=== PATIENT | female | born 1955 | race Caucasian/White ===

== ENCOUNTER → 2023-11-19 08:45 | Outpatient (REF) | payer OTHER, SELFPAY | LOC: HWRCS 08:45 | PROVIDERS: ATTENDING PHYSICIAN Nurse Practitioner Adult Health | DX: R06.02 Shortness of breath (principal); R00.2 Palpitations | CPT/HCPCS: 93306 ==

== ENCOUNTER → 2023-11-22 14:29 | Outpatient (REF) | payer OTHER, SELFPAY | LOC: HWRAD 14:29 | PROVIDERS: ATTENDING PHYSICIAN Nurse Practitioner Adult Health | DX: Z12.31 Encounter for screening mammogram for malignant neoplasm of breast (principal); Z78.0 Asymptomatic menopausal state | CPT/HCPCS: 77063; 77067; 77080 ==

== ENCOUNTER → 2023-12-13 13:22 | Outpatient (REF) | payer OTHER, SELFPAY | LOC: HWRAD 13:22 | PROVIDERS: ATTENDING PHYSICIAN Nurse Practitioner Adult Health | DX: M79.671 Pain in right foot (principal); R05.3 Chronic cough | CPT/HCPCS: 71046; 73630 ==

== ENCOUNTER → 2024-02-06 11:36 | Outpatient (REF) | payer OTHER, SELFPAY | LOC: RCS 11:36 | PROVIDERS: ATTENDING PHYSICIAN Nurse Practitioner Adult Health | DX: R00.2 Palpitations (principal) | CPT/HCPCS: 93225; 93226 ==

== ENCOUNTER → 2024-02-18 09:56 | Outpatient (REF) | payer OTHER, SELFPAY | LOC: HWRAD 09:56 | PROVIDERS: ATTENDING PHYSICIAN Surgery; FAMILY PHYSICIAN Nurse Practitioner Adult Health | DX: D17.9 Benign lipomatous neoplasm, unspecified (principal) | CPT/HCPCS: 73030 ==

== ENCOUNTER → 2024-02-19 09:18 | Outpatient (REF) | payer OTHER, SELFPAY | LOC: HWRAD 09:18 | PROVIDERS: ATTENDING PHYSICIAN Surgery; FAMILY PHYSICIAN Nurse Practitioner Adult Health | DX: D17.9 Benign lipomatous neoplasm, unspecified (principal) | CPT/HCPCS: 73201; 74177; Q9967 ==

== ENCOUNTER 2024-03-03 06:37 | Day surgery (SDC) | payer OTHER, SELFPAY ==
[2024-03-03 10:55] VITALS: BMI 33.3
[2024-03-03 11:00] VITALS: BP 156/87
[2024-03-03] MEDS: NORMOSOL-R 1000 IV (11:17)
[2024-03-03] MEDS: TYLENOL 1000 MG PO (11:18)
[2024-03-03 11:19] VITALS: BMI 33.3
--- NOTE | 2024-03-03 13:16 | W.IMMPOSTOP ---
Surgical Immed Post Op Note
-
Primary Surgeon: Catherine
Pre-op Diagnosis: Lipoma of right shoulder, lipoma of right flank
Post-op Diagnosis: Same
Procedure Performed: Excision of lipomas of shoulder and flank
Anesthesia Type: MAC local
Specimen / Cultures: Lipoma of right flank, lipoma of right shoulder
Estimated Blood Loss: 3cc
Complications: None immediate
Operative Findings: 9cm x 6cm x 4cm shoulder; 8cm x 6cm x 4cm flank; shoulder closed with nylon suture, flank with monocryl (both with a deep layer of vicryls)
[2024-03-03 13:17] VITALS: BP 150/73
--- NOTE | 2024-03-03 13:21 | OR.RPT ---
Operative Report
Operative Report
Primary Surgeon: Catherine
Pre-op Diagnosis: Lipoma of right shoulder, lipoma of right flank
Post-op Diagnosis: Same
Procedure Performed: Excision of lipomas of shoulder and flank
Anesthesia Type: MAC local
Specimen / Cultures: Lipoma of right flank, lipoma of right shoulder
Estimated Blood Loss: 3cc
Complications: None immediate
Operative Findings: 9cm x 6cm x 4cm shoulder; 8cm x 6cm x 4cm flank; shoulder closed with nylon suture, flank with monocryl (both with a deep layer of vicryls)
Date of Surgery: 03/03/24
Indications: This 68F developed a symptomatic lipomas of her right shoulder and right flank. Excision under MAC local was elected.
PROCEDURE: After informed consent was obtained, the patient was marked while awake in the preop area and then brought to the operative suite and placed supine on the operating table. The patient was sedated, prepped and draped in the usual sterile
manner and an adequate local anesthetic was administered using lidocaine 1% with epinephrine.
An incision was made over the shoulder mass with a #15 blade. The incision was carried down to tthe lipoma capsule with electrocautery. Cautery and blunt dissection was used to liberate the mass from surrounding structures. The mass was delivered
through the wound and passed off the table as specimen. The wound was copiously irrigated with sterile saline and hemostasis was assured. The wound was closed in layers with deep dermal interrupted 3-0 vicryl and interrupted 3-0 nylon sutures.
Attention was turned to the right flank and the above process was repeated. This wound was closed with vicryl deep dermal sutures and a running subcuticular 4-0 monocryl suture. Topical skin glue was applied. Dry sterile gauze was applied to the
right shoulder wound.
All surgical counts were reported as correct. The patient tolerated the procedure well and was taken to the PACU in stable condition.
[2024-03-03 13:31] VITALS: BP 141/70
[2024-03-03 13:45] VITALS: BP 134/68
[2024-03-03 14:00] VITALS: BP 143/71
== END 2024-03-03 14:29 | disposition home or self-care (01) ==
LOC: SDS 06:37
PROVIDERS: ATTENDING PHYSICIAN Surgery
DX: D17.1 Benign lipomatous neoplasm of skin and subcutaneous tissue of trunk (principal); D17.21 Benign lipomatous neoplasm of skin and subcutaneous tissue of right arm
CPT/HCPCS: 11406; 88304

== ENCOUNTER → 2024-04-09 08:01 | Outpatient (REF) | payer OTHER, SELFPAY | LOC: RCS 08:01 | PROVIDERS: ATTENDING PHYSICIAN Internal Medicine Cardiovascular Disease; FAMILY PHYSICIAN Nurse Practitioner Adult Health | DX: R06.09 Other forms of dyspnea (principal) | CPT/HCPCS: 93017; 93350; Q9957 ==

== ENCOUNTER → 2024-04-23 08:01 | Outpatient (REF) | payer OTHER, SELFPAY | LOC: RAD 08:01 | PROVIDERS: ATTENDING PHYSICIAN Podiatrist Foot & Ankle Surgery; FAMILY PHYSICIAN Nurse Practitioner Adult Health | DX: M77.41 Metatarsalgia, right foot (principal); S93.524A Sprain of metatarsophalangeal joint of right lesser toe(s), initial encounter; G57.61 Lesion of plantar nerve, right lower limb | CPT/HCPCS: 76882 ==

== ENCOUNTER 2024-04-25 06:10 | Day surgery (SDC) | payer OTHER, SELFPAY ==
[2024-04-22 09:12] VITALS: BMI 33.8
[2024-04-22 10:53] LABS: % Basophils 0.4 % (0-2); % Eosinophils 1.4 % (0-6); % Immature Granulocytes 0.2 % (0-0.5); % Lymphocytes 33.5 % (20.5-51.1); % Monocytes 7.8 % (1.7-9.3); % Neutrophils 56.7 % (42.2-75.2); Absolute Eosinophils 0.1 10^3/uL (0-0.7); Absolute Lymphocytes 1.6 10^3/uL (1.2-3.4); Absolute Monocytes 0.4 10^3/uL (0.1-0.6); Absolute Neutrophils 2.8 10^3/uL (1.4-6.5); Hematocrit 37.6 % (37.0-47.0); Hemoglobin 12.5 g/dL (12.0-16.0); Mean Corp Hgb Conc. 33.2 g/dL (33.0-37.0); Mean Corpuscular Hgb 29.1 pg (27.0-31.0); Mean Corpuscular Volume 87.6 fL (81.0-99.0); Mean Platelet Volume 11.5 fL (7.4-10.4); Nucleated Red Blood Cells % 0 %; Platelet Count 272 10^3/uL (130-400); Red Blood Cell Count 4.29 10^6/uL (4.20-5.40); Red Cell Dist. Width 13.2 % (11.5-14.5); White Blood Cell Count 4.9 10^3/uL (4.8-10.8)
[2024-04-22 11:07] LABS: ALT (SGPT) 24 U/L (0-35); AST (SGOT) 25 U/L (14-36); Albumin 4.2 g/dl (3.5-5.0); Alkaline Phosphatase 85 U/L (38-126); Blood Urea Nitrogen 18 mg/dl (7-17); Calcium 9.2 mg/dl (8.4-10.2); Carbon Dioxide 30 mmol/L (22-30); Chloride 103 mmol/L (98-107); Estimated Creatinine Clearance 92 ml/min; Glucose 92 mg/dl (70-99); Potassium 4.5 mmol/L (3.5-5.1); Sodium 142 mmol/L (135-145); Total Bilirubin 0.3 mg/dl (0.2-1.3); Total Protein 6.6 g/dl (6.3-8.2); eGFR > 60.00
[2024-04-25] VITALS (22 sets, daily range): BP systolic 130–185; BP diastolic 61–130
[2024-04-25] MEDS: NSS 1000 IV (11:02)
[2024-04-25] MEDS: TYLENOL 1000 MG PO (13:45)
--- NOTE | 2024-04-25 16:00 | ITS.CL.PN ---
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
Procedure
Procedure Note:
CARDIAC CATHETERIZATION REPORT
Date of Procedure: 04/25/2024
Referring: Dr. Kamar Delgado
INDICATION: dyspnea on exertion, intermediate risk stress echo with possible basal-mid anterolateral wall motion abnormality with stress
PROCEDURE:
1. Right heart catheterization
2. Left heart catheterization
3. Coronary angiography
4. iFR of diagonal artery
ACCESS:
6 [place] right radial artery
CATHETERS:
1. 6 [place] JR4
2. 6 [place] JL3.5
3. 6 [place] EBU3.5 guide catheter
HEMODYNAMIC DATA
LV 162/11 (EDP 21) mmHg
AO 188/85 (mean 127) mmHg
RA 8 mmHg
RV 27/5 (EDP 12) mmHg
PA 28/14 (mean 19) mmHg
PCWP 13 mmHg
CO/CI 5.11/270
SVR 1862 dsc*-5
PVR 1.2 Wood Units
Coronary Angiography
Dominance: right
LM: large, normal
LAD: large vessel giving rise to a large D1 and small D2. There is a focal 60% stenosis in the ostial D1 that was further assessed with iFR.
LCx: large vessel giving rise to a moderate caliber OM1 and several LPL branches. There is no CAD.
RCA: gives rise to a moderate caliber RPDA and one moderate caliber RPL branch. There is no CAD.
iFR of D1
The decision was made to perform physiologic testing. The diagnostic catheter was removed over a wire and exchanged for a EBU 3.5 guiding catheter. The guiding catheter was advanced into the ascending aorta and seated in the LMCA. Additional
heparin was given to obtain an ACT greater than 250 seconds. An iFR wire was zeroed outside of the body, then inserted into the guiding sheath. The wire was advanced and the transducer was normalized just outside of the guiding catheter tip. The
wire was advanced into the mid body of the diagonal. Three iFR measurements were taken. The lesion was determined to be nonocclusive (0.95).
Closure Device: TR band
Radiation (mGy): 366.25
DAP (cm2.Gy): 29.48
Fluoroscopy time (minutes): 7.1
CONCLUSIONS
1. Single vessel coronary artery disease with 60% stenosis of D1 that was assessed with iFR and found to be negative (0.95).
2. Normal biventricular filling pressures, normal pulmonary artery pressure, normal cardiac output.
3. No aortic stenosis on catheter pullback.
RECOMMENDATIONS:
1. Expectant management after cardiac catheterization via right radial approach.
2. Aggressive secondary prevention of coronary artery disease with statin for goal LDL<70 and ASA 81 daily.
Copy to: Kamar Delgado MD
Signed: Bobo Becker MD, PhD
[2024-04-28 11:55] LABS: ACT-LR - POC 234 Seconds (116-155)
== END 2024-04-25 15:19 | disposition home or self-care (01) ==
LOC: CATH 06:10
PROVIDERS: ATTENDING PHYSICIAN Student in an Organized Health Care Education/Training Program; FAMILY PHYSICIAN Nurse Practitioner Adult Health; OTHER PHYSICIAN Internal Medicine Cardiovascular Disease
DX: I25.10 Atherosclerotic heart disease of native coronary artery without angina pectoris (principal); R00.2 Palpitations; E66.9 Obesity, unspecified; I10 Essential (primary) hypertension; E78.00 Pure hypercholesterolemia, unspecified; M19.90 Unspecified osteoarthritis, unspecified site; Z85.820 Personal history of malignant melanoma of skin; F90.9 Attention-deficit hyperactivity disorder, unspecified type; Z96.653 Presence of artificial knee joint, bilateral; Z88.5 Allergy status to narcotic agent; Z79.1 Long term (current) use of non-steroidal anti-inflammatories (NSAID); Z86.79 Personal history of other diseases of the circulatory system; Z80.1 Family history of malignant neoplasm of trachea, bronchus and lung; Z82.49 Family history of ischemic heart disease and other diseases of the circulatory system
CPT/HCPCS: 36415; 80053; 85025; 85347; 93005; 93460; 93799; C1769; C1894; Q9967

== ENCOUNTER → 2025-04-08 07:12 | Outpatient (REF) | payer OTHER, SELFPAY | LOC: WDC 07:12 | PROVIDERS: ATTENDING PHYSICIAN Nurse Practitioner Adult Health | DX: Z12.31 Encounter for screening mammogram for malignant neoplasm of breast (principal) | CPT/HCPCS: 77063; 77067 ==

== ENCOUNTER → 2025-04-17 09:01 | Outpatient (REF) | payer OTHER, SELFPAY | LOC: WDC 09:01 | PROVIDERS: ATTENDING PHYSICIAN Nurse Practitioner Adult Health | DX: R92.8 Other abnormal and inconclusive findings on diagnostic imaging of breast (principal) | CPT/HCPCS: 76642 ==